=== PATIENT | male | born 1980 | race Caucasian/White ===

== ENCOUNTER 2023-11-28 11:19 | Inpatient (IN) | payer OTHER ==
[2023-11-28 11:41] VITALS: BMI 23.1
[2023-11-28] MEDS ORDERED: IBUPROFEN 600 MG TABLET (FP) PO PRN (12:12)
[2023-11-28] MEDS ORDERED: DICYCLOMINE HCL 10 MG CAPSULE PO PRN (12:12)
[2023-11-28] MEDS ORDERED: IBUPROFEN 400 MG TABLET (FP) PO PRN (12:12)
[2023-11-28] MEDS ORDERED: NALOXONE HCL (KLOXXADO) 8 MG SPRAY NS PRN (12:12)
[2023-11-28] MEDS ORDERED: MAGNESIUM HYDROX 2400MG/30ML ORAL SUSPENSION 30 ML CUP PO PRN (12:12)
[2023-11-28] MEDS ORDERED: BISMUTH SUBSALICYLATE 262 MG/15 ML BTL PO PRN (12:12)
[2023-11-28] MEDS ORDERED: POLYETHYLENE GLYCOL (HEALTHYLAX) 3350 17 GM PACKET PO PRN (12:12)
[2023-11-28] MEDS ORDERED: BENZONATATE 200 MG CAPSULE PO PRN (12:12)
[2023-11-28] MEDS ORDERED: chlordiazePOXIDE HCL 25 MG CAPSULE PO PRN (12:12)
[2023-11-28] MEDS ORDERED: BENZOCAINE/MENTHOL (CHLORASEPTIC ) LOZENGE MM PRN (12:12)
[2023-11-28] MEDS ORDERED: ACETAMINOPHEN 325 MG TABLET (FP) PO PRN (12:12)
[2023-11-28] MEDS ORDERED: NALOXONE HCL 0.4 MG/ML VIAL IM PRN (12:12)
[2023-11-28] MEDS ORDERED: guaiFENesin 600 MG TABLET.ER (FP) PO PRN (12:12)
[2023-11-28] MEDS ORDERED: LOPERAMIDE HCL 2 MG CAPSULE PO PRN (12:12)
[2023-11-28 13:43] LABS: HEMOGLOBIN 13.8 GM/dL (11.7-16.9); MCH 32.8 pg (25.7-33.7); MCHC 32.8 g/dl (32.0-35.9); MEAN CELL VOLUME 99.9 fl (80-96); MEAN PLT VOLUME 8.2 fl (7.5-11.1); PLATELET COUNT 106 10^3/uL (134-434); RDW 13.8 % (11.9-15.9); WHITE BLOOD COUNT 3.7 K/mm3 (4.0-10.0)
[2023-11-28 13:54] LABS: POTASSIUM 3.6 mmol/L (3.5-5.1)
[2023-11-28 13:56] LABS: CALCIUM 8.6 mg/dL (8.5-10.1)
[2023-11-28 13:57] LABS: ALBUMIN 4.3 g/dl (3.4-5.0); BLOOD UREA NITROGEN 6.6 mg/dL (7-18)
[2023-11-28 14:00] LABS: CREATININE 0.7 mg/dL (0.55-1.3)
[2023-11-28 14:01] LABS: BILIRUBIN,TOTAL 0.5 mg/dL (0.2-1); TOT PROT 8.2 g/dl (6.4-8.2)
[2023-11-28] MEDS: LORazepam 1 MG TABLET PO PRN ×2 (14:55→20:10)
[2023-11-28] MEDS: METHOCARBAMOL 500 MG TABLET PO PRN ×2 (14:56→22:10)
[2023-11-28] MEDS ORDERED: chlordiazePOXIDE HCL 25 MG CAPSULE PO SCH (17:00)
[2023-11-28] MEDS: LORazepam 2 MG TABLET PO SCH ×2 (17:12→22:10)
[2023-11-28] MEDS: ONDANSETRON *ODT* 4 MG TABLET SL PRN (17:16)
[2023-11-28] MEDS: hydrOXYzine PAMOATE 25 MG CAPSULE (FP) PO PRN (20:10)
[2023-11-28] MEDS: THIAMINE HCL 100 MG TABLET (FP) PO SCH (22:10)
[2023-11-28] MEDS: MELATONIN 5 MG TABLETS PO SCH (22:10)
[2023-11-29] MEDS: LORazepam 1 MG TABLET PO PRN ×2 (00:57→12:22)
[2023-11-29] MEDS: ONDANSETRON *ODT* 4 MG TABLET SL PRN (03:31)
[2023-11-29] MEDS: LORazepam 2 MG TABLET PO SCH ×4 (05:25→22:13)
[2023-11-29] MEDS: PRENATAL VITAMINS W/ FOLIC ACID TABLET (FP) PO SCH (10:19)
[2023-11-29 13:37] LABS: HIV INTERPRETATION NEGATIVE (NEGATIVE)
[2023-11-29] MEDS: METHOCARBAMOL 500 MG TABLET PO PRN ×2 (14:46→22:12)
[2023-11-29] MEDS: hydrOXYzine PAMOATE 25 MG CAPSULE (FP) PO PRN (14:46)
[2023-11-29] MEDS: MELATONIN 5 MG TABLETS PO SCH (22:12)
[2023-11-29] MEDS: THIAMINE HCL 100 MG TABLET (FP) PO SCH (22:12)
[2023-11-30] MEDS ORDERED: chlordiazePOXIDE HCL 25 MG CAPSULE PO SCH (05:00)
[2023-11-30] MEDS: LORazepam 1 MG TABLET PO SCH ×4 (05:59→22:15)
[2023-11-30] MEDS: MAG HYDROX/AL HYDROX/SIMETH 30 ML UNIT-DOSE CUP PO PRN ×2 (06:01→22:16)
[2023-11-30] MEDS: PRENATAL VITAMINS W/ FOLIC ACID TABLET (FP) PO SCH (10:13)
[2023-11-30] MEDS: LORazepam 1 MG TABLET PO PRN (14:08)
[2023-11-30] MEDS: MELATONIN 5 MG TABLETS PO SCH (22:15)
[2023-11-30] MEDS: THIAMINE HCL 100 MG TABLET (FP) PO SCH (22:15)
[2023-11-30] MEDS: METHOCARBAMOL 500 MG TABLET PO PRN (22:15)
[2023-12-01] MEDS ORDERED: LORazepam 0.5 MG TABLET PO PRN
[2023-12-01] MEDS ORDERED: chlordiazePOXIDE HCL 10 MG CAPSULE PO PRN
[2023-12-01] MEDS ORDERED: chlordiazePOXIDE HCL 10 MG CAPSULE PO SCH (05:00)
[2023-12-01] MEDS: LORazepam 0.5 MG TABLET PO SCH ×4 (05:21→22:39)
[2023-12-01] MEDS: PRENATAL VITAMINS W/ FOLIC ACID TABLET (FP) PO SCH (10:22)
[2023-12-01] MEDS: hydrOXYzine PAMOATE 25 MG CAPSULE (FP) PO PRN (18:54)
[2023-12-01] MEDS: METHOCARBAMOL 500 MG TABLET PO PRN (22:39)
[2023-12-01] MEDS: THIAMINE HCL 100 MG TABLET (FP) PO SCH (22:40)
[2023-12-01] MEDS: MELATONIN 5 MG TABLETS PO SCH (22:41)
[2023-12-02] MEDS ORDERED: chlordiazePOXIDE HCL 10 MG CAPSULE PO SCH (05:00)
[2023-12-02] MEDS ORDERED: LORazepam 0.5 MG TABLET PO ONE (05:00)
[2023-12-02 06:25] VITALS: RESP 18
[2023-12-02 09:26] VITALS: BP 126/96; PULSE 78; TEMP 97.8
[2023-12-02] MEDS: PRENATAL VITAMINS W/ FOLIC ACID TABLET (FP) PO SCH (09:38)
[2023-12-03] MEDS ORDERED: chlordiazePOXIDE HCL 10 MG CAPSULE PO ONE (05:00)
== END 2023-12-02 09:18 | disposition home or self-care (01) | DRG 775 ==
LOC: YASAS 11:19 → Y3N 12:17
PROVIDERS: ADMIT Allergy & Immunology; ATTEND Surgery
PROC: HZ2ZZZZ Detoxification Services for Substance Abuse Treatment (ICD-10-PCS; principal; 2023-11-28)
DX: F10.230 Alcohol dependence with withdrawal, uncomplicated (principal); F17.210 Nicotine dependence, cigarettes, uncomplicated; K21.9 Gastro-esophageal reflux disease without esophagitis; R74.01 Elevation of levels of liver transaminase levels; R74.8 Abnormal levels of other serum enzymes; Z72.0 Tobacco use; Z28.310 Unvaccinated for COVID-19; Z28.9 Immunization not carried out for unspecified reason; Z88.0 Allergy status to penicillin
CPT/HCPCS: 36415; 80053; 80307; 82140; 85027; 86780; 87389; 87635; 93005; 93010; Q0162

== ENCOUNTER 2024-11-14 08:56 | Inpatient (IN) | payer OTHER ==
[2024-11-14 09:28] VITALS: BMI 26.4
[2024-11-14] MEDS ORDERED: BISMUTH SUBSALICYLATE 524 MG/30 ML PO PRN (11:08)
[2024-11-14] MEDS ORDERED: POLYETHYLENE GLYCOL (HEALTHYLAX) 3350 17 GM PACKET PO PRN (11:08)
[2024-11-14] MEDS ORDERED: NALOXONE (NARCAN) HCL 4 MG/0.1 ML SPRAY NS PRN (11:08)
[2024-11-14] MEDS ORDERED: BENZONATATE 200 MG CAPSULE PO PRN (11:08)
[2024-11-14] MEDS ORDERED: BENZOCAINE/MENTHOL (CHLORASEPTIC ) LOZENGE MM PRN (11:08)
[2024-11-14] MEDS ORDERED: DICYCLOMINE HCL 10 MG CAPSULE PO PRN (11:08)
[2024-11-14] MEDS ORDERED: ONDANSETRON *ODT* 4 MG TABLET SL PRN (11:08)
[2024-11-14] MEDS ORDERED: guaiFENesin 600 MG TABLET.ER (FP) PO PRN (11:08)
[2024-11-14] MEDS ORDERED: chlordiazePOXIDE HCL 25 MG CAPSULE ONE (12:08)
[2024-11-14] MEDS: chlordiazePOXIDE HCL 25 MG CAPSULE PO SCH (12:18)
[2024-11-14] MEDS: hydrOXYzine PAMOATE 25 MG CAPSULE (FP) PO PRN (21:08)
[2024-11-14] MEDS: METHOCARBAMOL 500 MG TABLET PO PRN (21:08)
[2024-11-14] MEDS: MELATONIN 5 MG TABLETS PO SCH (22:34)
[2024-11-14] MEDS: THIAMINE 100 MG TABLET PO SCH (22:34)
[2024-11-15 09:10] LABS: POTASSIUM 3.9 mmol/L (3.5-5.1)
[2024-11-15 09:12] LABS: CALCIUM 9.2 mg/dL (8.5-10.1)
[2024-11-15 09:13] LABS: BLOOD UREA NITROGEN 14.2 mg/dL (7-18)
[2024-11-15 09:16] LABS: CREATININE 0.8 mg/dL (0.55-1.3)
[2024-11-15 09:17] LABS: BILIRUBIN,TOTAL 0.9 mg/dL (0.2-1); TOT PROT 7.4 g/dl (6.4-8.2)
[2024-11-15 09:42] LABS: HEMATOCRIT 41.3 % (35.4-49); HEMOGLOBIN 13.6 GM/dL (11.7-16.9); MCH 32.9 pg (25.7-33.7); MCHC 32.9 g/dl (32.0-35.9); MEAN CELL VOLUME 99.8 fl (80-96); MEAN PLT VOLUME 8.9 fl (7.5-11.1); PLATELET COUNT 125 10^3/uL (134-434); RBC 4.14 M/mm3 (4.00-5.60)
[2024-11-15] MEDS: NICOTINE 14 MG/24 HOURS TOPICAL PATCH TD SCH (10:30)
[2024-11-15] MEDS: PRENATAL VITAMINS W/ FOLIC ACID TABLET (FP) PO SCH (10:30)
[2024-11-15] MEDS: chlordiazePOXIDE HCL 25 MG CAPSULE PO PRN (13:25)
[2024-11-15] MEDS: IBUPROFEN 400 MG TABLET (FP) PO PRN (16:20)
[2024-11-15] MEDS: MELATONIN 5 MG TABLETS PO SCH (22:15)
[2024-11-15] MEDS: MAG HYDROX/AL HYDROX/SIMETH 30 ML UNIT-DOSE CUP PO PRN (22:18)
[2024-11-16] MEDS: IBUPROFEN 600 MG TABLET (FP) PO PRN (04:28)
[2024-11-16] MEDS: chlordiazePOXIDE HCL 25 MG CAPSULE PO SCH (04:28)
[2024-11-16] MEDS: LOPERAMIDE HCL 2 MG CAPSULE PO PRN (13:10)
[2024-11-17] MEDS ORDERED: chlordiazePOXIDE HCL 10 MG CAPSULE PO PRN
[2024-11-17] MEDS: ACETAMINOPHEN 325 MG TABLET (FP) PO PRN (05:39)
[2024-11-17] MEDS: chlordiazePOXIDE HCL 10 MG CAPSULE PO SCH (05:39)
[2024-11-17] MEDS: NICOTINE POLACRILEX 2 MG GUM BUC PRN (05:41)
[2024-11-17] MEDS: FAMOTIDINE 20 MG TABLET PO SCH (10:42)
[2024-11-17] MEDS: NALOXONE (NYS OPIOID OVERDOSE PROGRAM) 4 MG/0.1 ML SPRAY NS SCH (14:52)
[2024-11-17 15:25] LABS: SGOT/AST 135 U/L (15-37); SGPT/ALT 138 U/L (13-61)
[2024-11-17 20:59] VITALS: TEMP 97.7
[2024-11-17] MEDS: LORazepam 0.5 MG TABLET PO SCH (22:21)
[2024-11-18] MEDS ORDERED: chlordiazePOXIDE HCL 10 MG CAPSULE PO SCH (05:00)
[2024-11-18] MEDS: LORazepam 0.5 MG TABLET PO SCH (05:31)
[2024-11-18] MEDS: MAGNESIUM HYDROX 2400MG/30ML ORAL SUSPENSION 30 ML CUP PO PRN (05:35)
[2024-11-18 06:23] VITALS: BP 132/90; PULSE 77; RESP 16
[2024-11-19] MEDS ORDERED: chlordiazePOXIDE HCL 10 MG CAPSULE PO ONE (05:00)
[2024-11-19] MEDS ORDERED: LORazepam 0.5 MG TABLET PO ONE (06:00)
== END 2024-11-18 09:04 | disposition home or self-care (01) | DRG 775 ==
LOC: YASAS 08:56 → Y6N 12:07
PROVIDERS: ADMIT Allergy & Immunology; ATTEND Surgery
PROC: HZ2ZZZZ Detoxification Services for Substance Abuse Treatment (ICD-10-PCS; principal; 2024-11-14)
DX: F10.230 Alcohol dependence with withdrawal, uncomplicated (principal); F12.10 Cannabis abuse, uncomplicated; F17.210 Nicotine dependence, cigarettes, uncomplicated; F10.282 Alcohol dependence with alcohol-induced sleep disorder; F41.9 Anxiety disorder, unspecified; G47.00 Insomnia, unspecified; K21.9 Gastro-esophageal reflux disease without esophagitis; R74.8 Abnormal levels of other serum enzymes; Z86.69 Personal history of other diseases of the nervous system and sense organs; Z88.0 Allergy status to penicillin
CPT/HCPCS: 36415; 80053; 80305; 80307; 84450; 84460; 85027; 86780; 93005; 93010

== ENCOUNTER 2025-07-04 15:22 | Inpatient (IN) | payer OTHER ==
[2025-07-04 15:25] VITALS: BMI 28.8
[2025-07-04] MEDS ORDERED: IBUPROFEN 600 MG TABLET (FP) PO PRN (16:02)
[2025-07-04] MEDS ORDERED: BENZOCAINE/MENTHOL (CHLORASEPTIC ) LOZENGE MM PRN (16:02)
[2025-07-04] MEDS ORDERED: POLYETHYLENE GLYCOL (HEALTHYLAX) 3350 17 GM PACKET PO PRN (16:02)
[2025-07-04] MEDS ORDERED: MAGNESIUM HYDROX 2400MG/30ML ORAL SUSPENSION 30 ML CUP PO PRN (16:02)
[2025-07-04] MEDS ORDERED: NICOTINE POLACRILEX 2 MG LOZENGE BC PRN (16:02)
[2025-07-04] MEDS ORDERED: BENZONATATE 200 MG CAPSULE PO PRN (16:02)
[2025-07-04] MEDS ORDERED: DICYCLOMINE HCL 10 MG CAPSULE PO PRN (16:02)
[2025-07-04] MEDS ORDERED: IBUPROFEN 400 MG TABLET (FP) PO PRN (16:02)
[2025-07-04] MEDS ORDERED: ACETAMINOPHEN 325 MG TABLET (FP) PO PRN (16:02)
[2025-07-04] MEDS ORDERED: NALOXONE (NARCAN) HCL 4 MG/0.1 ML SPRAY NS PRN (16:02)
[2025-07-04] MEDS: MAG HYDROX/AL HYDROX/SIMETH 30 ML UNIT-DOSE CUP PO PRN (22:44)
[2025-07-04] MEDS: THIAMINE 100 MG TABLET PO SCH (22:44)
[2025-07-04] MEDS: guaiFENesin 600 MG TABLET.ER (FP) PO PRN (22:44)
[2025-07-04] MEDS: MELATONIN 5 MG TABLETS PO SCH (22:44)
[2025-07-05 08:13] LABS: MCHC 33.2 g/dl (32.3-36.5); MEAN CELL VOLUME 97.0 fl (79.0-92.2); MEAN PLT VOLUME 10.7 fl (9.4-12.4); RDW 12.2 % (12.1-15.9)
[2025-07-05 08:20] LABS: GLUCOSE,RANDOM 94.0 mg/dL (74-106)
[2025-07-05 08:21] LABS: TOT PROT 7.1 g/dl (6.4-8.2)
[2025-07-05 08:22] LABS: CO2 24.0 mmol/L (21-32)
[2025-07-05 08:23] LABS: ALK PHOS 58.0 U/L (40-150)
[2025-07-05 08:26] LABS: CREATININE 0.75 mg/dL (0.55-1.3); SGOT/AST 100.0 U/L (5-34)
[2025-07-05 09:25] LABS: SGPT/ALT 44.0 U/L (0-55)
[2025-07-05] MEDS: PRENATAL VITAMINS W/ FOLIC ACID TABLET (FP) PO SCH (10:05)
[2025-07-05] MEDS: PANTOPRAZOLE 20 MG TABLET PO SCH (10:05)
[2025-07-05] MEDS: ONDANSETRON *ODT* 4 MG TABLET SL PRN (10:08)
[2025-07-05] MEDS: BISMUTH SUBSALICYLATE 524 MG/30 ML PO PRN (17:25)
[2025-07-05] MEDS: hydrOXYzine PAMOATE 25 MG CAPSULE (FP) PO PRN (21:09)
[2025-07-05] MEDS: METHOCARBAMOL 500 MG TABLET PO PRN (21:10)
[2025-07-05] MEDS: MELATONIN 5 MG TABLETS PO SCH (21:54)
[2025-07-06] MEDS: LOPERAMIDE HCL 2 MG CAPSULE PO PRN (17:17)
[2025-07-07] MEDS: NICOTINE POLACRILEX 2 MG GUM BUC PRN (10:09)
[2025-07-07] MEDS: NALTREXONE HCL 50 MG TABLET PO SCH (15:41)
[2025-07-08] MEDS: NICOTINE 14 MG/24 HOURS TOPICAL PATCH TD SCH (14:04)
[2025-07-09 08:57] VITALS: BP 126/91; PULSE 79; RESP 16; TEMP 97.6
== END 2025-07-09 09:30 | disposition home or self-care (01) | DRG 775 ==
LOC: YASAS 15:22 → Y6N 17:18
PROVIDERS: ADMIT Neuromusculoskeletal Medicine & OMM; ATTEND Counselor Addiction (Substance Use Disorder)
PROC: HZ2ZZZZ Detoxification Services for Substance Abuse Treatment (ICD-10-PCS; principal; 2025-07-04)
DX: F10.230 Alcohol dependence with withdrawal, uncomplicated (principal); F12.20 Cannabis dependence, uncomplicated; F17.210 Nicotine dependence, cigarettes, uncomplicated; F10.282 Alcohol dependence with alcohol-induced sleep disorder; F10.24 Alcohol dependence with alcohol-induced mood disorder; F41.9 Anxiety disorder, unspecified; K21.9 Gastro-esophageal reflux disease without esophagitis; R74.01 Elevation of levels of liver transaminase levels; Z88.0 Allergy status to penicillin
CPT/HCPCS: 36415; 80053; 80307; 85027; 86780; Q0162